=== PATIENT | male | born 1955 | race Caucasian/White ===

== ENCOUNTER 2023-08-09 06:24 | Day surgery (SDC) | payer MEDICARE, SELFPAY ==
[2023-07-02 09:53] VITALS: BMI 30.7
[2023-08-09 07:14] VITALS: BP 141/82; PULSE 63; RESP 16; TEMP 36.6; O2SAT 97
[2023-08-09] MEDS: LACTATED RINGERS 1,000 ML 150 ML IV CONT (07:56)
--- NOTE | 2023-08-09 07:59 | PM.HPGS ---
History of Present Illness History of Present Illness Consent: Risks, benefits, and alternatives have been discussed and questions answered. Patient agrees to proceed with procedure. Chief complaint: Personal History of Colonic Polyps Narrative: Freddy Crouch is a 68 year old male presents for screening colonoscopy. Patient was found to have a benign colon polyp at the time of last colonoscopy 2018. Patient reports that his bowel movements are normal. Patient denies abdominal pain. He has had no bleeding. Family history is noncontributory. Review of Systems Review of Systems: Review of systems noncontributory. [facility] Past Medical History Medical History Cervical vertebral fusion Eczema Hyperlipidemia, mixed Pre-diabetes Screening for colon cancer Screening for prostate cancer Surgical History Surgical History History of tonsillectomy Family History Family History Father Family history of malignant neoplasm Mother Family history of lung cancer Sibling Family history of lung cancer Social History Social History Smoking status: Never smoker Second hand tobacco smoke exposure: No Alcohol intake: current Drinks per week: 12 Substance use: never Substance use type: does not use Lack of Transportation: No Lack of Food: Never True Current Housing: I Have Housing Concerned About Future Housing: No Difficulty Paying Gas/Electric Bills: No Difficulty Paying for Meds: No Currently Unemployed: No Education: Trade/Vocational Certificate Difficulty w/ Childcare or Family Care: No Living arrangements: with family Spiritual care concerns: No Meds Home Medications and Allergies Home Medications Medication Instructions Recorded Confirmed Type atorvastatin 40 mg tablet 40 mg PO DAILY #90 tabs 04/27/23 08/09/23 Rx Allergies Allergy/AdvReac Type Severity Reaction Status Date / Time Iodinated Contrast Media Allergy Unknown Rash Verified 08/09/23 07:08 Penicillins Allergy Unknown Unknown Verified 08/09/23 07:08 Vital Signs Vital Signs - 24 hr 08/09/23 07:14 Temperature 97.8 F Pulse Rate 63 Respiratory Rate 16 Blood Pressure 141/82 H Pulse Oximetry 97 Oxygen Delivery Room Air Exam Narrative: Physical exam reveals patient to be alert signs stable. HEENT exam is unremarkable. Patient is anicteric. Lungs are clear to auscultation and percussion. Heart is without murmur or extra sounds. Abdomen bowel sounds are present soft nontender with no organomegaly. Digital external rectal exam normal. Assessment and Plan Assessment and plan (1) History of colon polyps: Code(s): Z86.010 - Personal history of colonic polyps Status: Acute Assessment and Plan: Patient has a history of colon polyps. Plan for surveillance colonoscopy at 5 year intervals.
--- NOTE | 2023-08-09 08:01 | P.PNAN_ITS ---
Anes - Initial Pre Proc Eval Procedure: Operation Date: 08/09/23 08:30 Proposed Procedures p Diagnostic Colonoscopy - Martir Null MD Date/Time: 08/09/23 08:01 Surgeon: Martir Null MD Pre Op Diagnosis: Personal History of Colonic Polyps Patient Data Age: 68 Gender: M Height: 1.78 m Weight: 98.9 kg Last Vital Signs Temp 36.6 C 08/09/23 07:14 Pulse 63 08/09/23 07:14 Resp 16 08/09/23 07:14 BP 141/82 H 08/09/23 07:14 Pulse Ox 97 08/09/23 07:14 O2 Del Method Room Air 08/09/23 07:14 Allergies Allergy/AdvReac Type Severity Reaction Status Date / Time Iodinated Contrast Media Allergy Unknown Rash Verified 08/09/23 07:08 Penicillins Allergy Unknown Unknown Verified 08/09/23 07:08 Home Medications Medication Instructions Recorded Confirmed Type atorvastatin 40 mg tablet 40 mg PO DAILY #90 tabs 04/27/23 08/09/23 Rx Patient hx anesthesia problems: none Family hx anesthesia problems: none Results Review: All pre-operative results and documents have been reviewed as part of the pre- operative evaluation. COUNTS INCLUDE 234 BEDS AT [facility] Past Medical History Medical History Cervical vertebral fusion Eczema Hyperlipidemia, mixed Pre-diabetes Screening for colon cancer Screening for prostate cancer Surgical History Surgical History History of tonsillectomy Family History Family History Father Family history of malignant neoplasm Mother Family history of lung cancer Sibling Family history of lung cancer Social History Social History Smoking status: Never smoker Second hand tobacco smoke exposure: No Alcohol intake: current Drinks per week: 12 Substance use: never Substance use type: does not use Lack of Transportation: No Lack of Food: Never True Current Housing: I Have Housing Concerned About Future Housing: No Difficulty Paying Gas/Electric Bills: No Difficulty Paying for Meds: No Currently Unemployed: No Education: Trade/Vocational Certificate Difficulty w/ Childcare or Family Care: No Living arrangements: with family Spiritual care concerns: No Anes - Eval Final PreProcedure Day of Procedure 08/09/23 08:01 Patient weight: obese Heart: regular rate and rhythm Lungs: clear to auscultation Airway: Mallampati scale class II Neurological: alert and oriented Last oral intake: >/= 8 hours ASA classification: II Emergent: no Anesthetic plan: proceed Anesthesia type and monitoring: general GIVS and standard monitoring Results Review: All pre-operative results and documents have been reviewed as part of the pre- operative evaluation. Informed Consent: The patient's anesthetic plan and its attendant risks and benefits were discussed with the patient/family/POA. Questions were solicited and answers provided to the satisfaction of the patient/family/POA.
[2023-08-09 08:54] VITALS: BP 116/67; PULSE 72; RESP 16; O2SAT 97
--- NOTE | 2023-08-09 09:02 | WPDANESPN ---
Anes - Prog Note Post-Op Date/Time: 08/09/23 09:02 Cardiovascular status: normal Respiratory status: normal Airway patency: baseline Mental status: baseline Post-Op hydration status: normal Vital Signs: Last Vital Signs Temp 36.6 C 08/09/23 07:14 Pulse 63 08/09/23 07:14 Resp 16 08/09/23 07:14 BP 141/82 H 08/09/23 07:14 Pulse Ox 97 08/09/23 07:14 O2 Del Method Room Air 08/09/23 07:14 Pain Score (VAS): 0/10 Patient Feedback: Patient satisfied with anesthetic care.
[2023-08-09 09:04] VITALS: BP 126/71; PULSE 71; RESP 18; O2SAT 97
[2023-08-09 09:14] VITALS: BP 113/73; PULSE 60; RESP 18; O2SAT 97
== END 2023-08-09 09:23 | disposition home or self-care (01) ==
PROVIDERS: PCP Family Medicine; Visit Provider Internal Medicine Gastroenterology
PROC: 0DJD8ZZ Inspection of Lower Intestinal Tract, Via Natural or Artificial Opening Endoscopic (ICD-10-PCS; CPT 45378; principal; 2023-08-09 08:30)
DX: Z86.010 Personal history of colon polyps (principal); D12.4 Benign neoplasm of descending colon; D12.5 Benign neoplasm of sigmoid colon; K57.30 Diverticulosis of large intestine without perforation or abscess without bleeding
CPT/HCPCS: 45385

== ENCOUNTER 2023-08-09 07:00 | Outpatient (NON) | payer MEDICARE, SELFPAY | END 2023-08-09 07:01 | disposition home or self-care (01) | LOC: ANHLAB 08-10 07:59 | PROVIDERS: PCP Family Medicine; Visit Provider Internal Medicine Gastroenterology | DX: D12.5 Benign neoplasm of sigmoid colon (principal) | CPT/HCPCS: 88305 ==